=== PATIENT | male | born 1975 | race Caucasian/White ===

== ENCOUNTER 2021-02-23 17:57 | Emergency (ER) | payer MEDICAID ==
[2021-02-23] MEDS ORDERED: CEPH-585 PO (22:33)
[2021-02-23] MEDS ORDERED: DOXY100C43 PO (22:33)
== END 2021-02-23 19:00 | disposition left against medical advice (07) ==
LOC: ER 17:57
DX: Z00.00 Encounter for general adult medical examination without abnormal findings (principal); Z53.21 Procedure and treatment not carried out due to patient leaving prior to being seen by health care provider

== ENCOUNTER 2021-02-23 19:29 | Emergency (ER) | payer MEDICAID ==
[~2021-02-23] VITALS: Ht 170.2 cm; Wt 77.3 kg
--- NOTE | 2021-02-23 20:13 | NUR ---
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
[2021-02-23 20:20] LABS: BASOPHILS # (AUTO) 0.1 X10'3 (0-0.2); BASOPHILS % (AUTO) 0.7 % (0-1); EOSINOPHILS # (AUTO) 0.2 X10'3 (0-0.9); EOSINOPHILS % (AUTO) 1.8 % (0-6); HEMATOCRIT 41.7 % (42.0-52.0); HEMOGLOBIN 13.8 g/dl (14.0-17.9); LYMPHOCYTES # (AUTO) 1.9 X10'3 (1.1-4.8); LYMPHOCYTES % (AUTO) 13.9 % (21-51); MEAN CORPUSCULAR HEMOGLOBIN 29.2 PG (27.0-31.0); MEAN CORPUSCULAR VOLUME 88.6 FL (78-98); MEAN PLATELET VOLUME 9.7 FL (7.4-10.4); MONOCYTES # (AUTO) 1.5 X10'3 (0-0.9); NEUTROPHILS # (AUTO) 10.1 X10'3 (1.8-7.7); NEUTROPHILS % (AUTO) 72.6 % (42-75); PLATELET COUNT 252 X10'3 (140-440); RED BLOOD COUNT 4.71 X10'6 (4.70-6.10); RED CELL DISTRIBUTION WIDTH 13.5 % (11.5-14.5); WHITE BLOOD COUNT 13.9 X10'3 (4.5-11.0)
[2021-02-23 20:46] LABS: ALANINE AMINOTRANSFERASE 160 U/L (12-78); ALBUMIN 3.4 G/DL (3.4-5.0); ALBUMIN/GLOBULIN RATIO 0.9 (1.1-1.5); ALKALINE PHOSPHATASE 106 IU/L (46-116); ANION GAP 8 (8-16); ASPARTATE AMINO TRANSFERASE 60 U/L (10-37); BILIRUBIN,TOTAL 0.4 MG/DL (0.1-1.0); BLOOD UREA NITROGEN 20 MG/DL (7-18); BUN/CREATININE RATIO 24.1 (5.4-32.0); CALCIUM 8.5 MG/DL (8.5-10.1); CHLORIDE 109 MMOL/L (99-107); CREATININE 0.83 MG/DL (0.60-1.10); GLUCOSE 93 MG/DL (70-104); POTASSIUM 3.9 MMOL/L (3.5-5.1); SODIUM 143 MMOL/L (135-145); TOTAL CARBON DIOXIDE 25.8 MMOL/L (24-32); TOTAL PROTEIN 7.2 G/DL (6.4-8.2); eGFR > 90 ML/MIN
--- NOTE | 2021-02-23 20:54 | NUR ---
pt has been unable to provide a urine sample, resting in bed comfortably.
[2021-02-23] MEDS ORDERED: LIDOcaine 1% W/epiNEPHrine 1:200,000 10ml vial IJ ONE (22:25)
[2021-02-23] MEDS ORDERED: DOXY100C43 PO (22:33)
[2021-02-23] MEDS ORDERED: DOXYCYCLINE 100MG CAPSULE PO STA (22:33)
[2021-02-23] MEDS ORDERED: CEPH-585 PO (22:33)
[2021-02-23] MEDS ORDERED: cephalexin 500mg capsule PO ONE (22:35)
[2021-02-23 22:44] VITALS: BP 122/73
[2021-02-23] MEDS ORDERED: acetaminophen 325mg tablet PO ONE (23:20)
[2021-02-23] MEDS ORDERED: ibuprofen tablet 400 MG TABLET PO ONE (23:20)
== END 2021-02-24 00:11 | disposition home or self-care (01) ==
LOC: ER 19:29
DX: L02.413 Cutaneous abscess of right upper limb (principal); F19.10 Other psychoactive substance abuse, uncomplicated; Z79.899 Other long term (current) drug therapy
CPT/HCPCS: 10060; 36415; 71045; 73070; 76882; 80053; 83605; 84145; 85025; 87040; 99284

== ENCOUNTER 2022-09-08 12:50 | Emergency (ER) | payer MEDICAID ==
[~2022-09-08] VITALS: Ht 167.6 cm; Wt 72.0 kg
[2022-09-08 13:07] VITALS: BP 116/81
== END 2022-09-08 14:39 | disposition home or self-care (01) ==
LOC: ER 12:51
DX: T40.411A Poisoning by fentanyl or fentanyl analogs, accidental (unintentional), initial encounter (principal); F17.200 Nicotine dependence, unspecified, uncomplicated; F11.90 Opioid use, unspecified, uncomplicated; Z72.89 Other problems related to lifestyle; Y92.89 Other specified places as the place of occurrence of the external cause
CPT/HCPCS: 99283